=== PATIENT | male | born 1975 | race Caucasian/White ===

== ENCOUNTER 2016-11-26 07:44 | Inpatient (IN) | payer OTHER ==
[~2016-11-26] VITALS: Ht 172.7 cm; Wt 86.2 kg
[2016-11-26 00:18] VITALS: BP 116/71
[2016-11-26] MEDS ORDERED: THIAMINE HCL 200 MG/2 ML VIAL IM ONE (14:00)
[2016-11-26] MEDS ORDERED: CLONIDINE HCL 0.1 MG TABLET PO PRN (14:00)
[2016-11-26] MEDS ORDERED: LORAZEPAM 1 MG TABLET PO PRN ×2 (14:00)
[2016-11-26] MEDS ORDERED: LORAZEPAM 2 MG/1 ML VIAL IM PRN (14:00)
[2016-11-26] MEDS ORDERED: MIRALAX 17 GM POWD.PACK PO PRN (14:00)
[2016-11-26] MEDS ORDERED: LOPERAMIDE HCL 2 MG CAPSULE PO PRN (14:00)
[2016-11-26] MEDS ORDERED: DICYCLOMINE HCL 20 MG TABLET PO PRN (14:00)
[2016-11-26] MEDS ORDERED: MAGNESIUM HYDROXIDE 30 ML LIQUID UDC PO PRN (14:00)
[2016-11-26] MEDS ORDERED: ONDANSETRON 4 MG/2 ML VIAL IM PRN (14:00)
[2016-11-26] MEDS ORDERED: MAG HYDROX/AL HYDROX/SIMETH 30 ML LIQUID UDC PO PRN (14:00)
[2016-11-26] MEDS: LORAZEPAM 1 MG TABLET PO SCH ×3 (15:02→21:43)
[2016-11-26] MEDS: ONDANSETRON ODT 4 MG TAB.RAPDIS SL PRN (15:02)
[2016-11-26 15:17] LABS: BASOPHILS % (AUTO) 0.4 % (0.0-2.0); EOSINOPHILS # (AUTO) 0.1 K/uL (0.0-0.7); EOSINOPHILS % (AUTO) 0.8 % (0.0-7.0); HEMATOCRIT 42.4 % (36.7-47.1); HEMOGLOBIN 14.9 g/dL (12.5-16.3); LYMPHOCYTES % (AUTO) 48.1 % (20.5-51.5); MEAN CORPUSCULAR HEMOGLOBIN 32.5 uug (23.8-33.4); MEAN CORPUSCULAR HGB CONC 35 g/dL (32.5-36.3); MEAN CORPUSCULAR VOLUME 92.4 fL (73.0-96.2); MONOCYTES # (AUTO) 0.5 K/uL (2.0-10.0); MONOCYTES % (AUTO) 7.6 % (0.0-11.0); NEUTROPHILS # (AUTO) 2.7 K/uL (1.8-8.9); NEUTROPHILS % (AUTO) 43.1 % (38.5-71.5); PLATELET COUNT (AUTO) 199 K/uL (152-348); RED BLOOD CELL COUNT(AUTO) 4.59 MIL/uL (4.06-5.63); RED CELL DISTRIBUTION WIDTH 11.6 % (12.1-16.2); WHITE BLOOD COUNT (AUTO) 6.3 K/uL (3.6-10.2)
[2016-11-26 15:20] LABS: ETHANOL < 3 MG/DL (0-0)
[2016-11-26 15:23] LABS: *AMPHETAMINE, URINE NEGATIVE (NEGATIVE); *BARBITURATE, URINE NEGATIVE (NEGATIVE); *CANNABINOID, URINE POSITIVE (NEGATIVE); *COCCAINE, URINE NEGATIVE (NEGATIVE); *OPIATE, URINE POSITIVE (NEGATIVE); *PHENCYCLIDINE SCREEN,URINE NEGATIVE (NEGATIVE)
--- NOTE | 2016-11-26 15:30 | NUR ---
ADMISSION Admitted a 41 year old male from [facility]. vital signs taken at intake during pre admission at 1402 Noted Patient alert and oriented x4, vital signs:BP: 108/74 P: 70, T: 97.8, R: 16, O2 SAT: 97% room air. Patient arrived on serenity unit at 1430 Patient reports no known allergies. Patient pupils are equal and reactive to light, 3mm. Abdomen is soft and non distended, bowel sounds heard in all quadrants. Respirations are even and unlabored, no SOB, lungs clear upon auscultation. body assessment completed, noted with multiple tattoos on back of head, chest, back, and bilateral arms. Patient skin is intact, no breakdown, bruising or discoloration noted. patients body search completed by male intake no contraband found. Patient is 5 feet 8 inches and weighs 190 lbs. Patient reports substance use history of: 1. etoh- began drinking alcohol at the age of 17, reports for the last 3 years has been consuming 1-2 pints of vodka daily, last drink 11/25/2016 reports had one beer. 2. marijuana- reports began smoking marijuana at the age of 17, reports for the last 3 months has been smoking "1 bowl" of marijuana daily, last smoked marijuana on 11/25/2016 "1 bowl". 3. Niantic- was prescribed Niantic for pain 3 months ago and reports he takes it as prescribed for pain TID 10-325mg 5x/wk. last used 11/25/2016. 4. soma- was prescribed for muscular pain, reports takes unknown amount BID 5x/wk by mouth, last used 11/26/2016. Patient reports his primary care physician is Dr. Aden Box in [facility], does not recall the number. Patient reports his longest period of sobriety has been "a couple of months, i don't remember when" per patient he attempts to stop drinking and is successful for a couple of months then begins drinking alcohol again. Patient denies any pre existing medical/psychiatric conditions. Patient denies any Seizure history. Patient was seen and examined by Dr. Mcghee at intake office, admitting orders were input. Psychiatrist notified of new admission. During nursing assessment patient noted with one episode of vomiting, presenting: intermittent nausea, moderate tremors, barely sweating, moderate anxiety with ciwa score of: 14, administered Zofran at 1502 for N/V, will reassess medication. Patient was placed on a 5 day Ativan taper, first dose of taper was administered at 1502 as ordered. Safety measures in place. call light kept with in reach, will continue to monitor closely.
[2016-11-26 15:32] LABS: ALANINE AMINOTRANSFERASE 28 U/L (16-63); ALBUMIN 4.3 g/dL (3.4-5.0); ALKALINE PHOSPHATASE 49 U/L (50-136); AMYLASE 37 U/L (25-115); ASPARTATE AMINOTRANSFERASE 16 U/L (15-37); BILIRUBIN,TOTAL 0.3 mg/dL (0.2-1.0); CALCIUM 9.3 mg/dL (8.5-10.1); CARBON DIOXIDE 35 mmol/L (21-32); CHLORIDE 101 mmol/L (98-107); GFR 83 mL/min (>60); GLUCOSE 99 mg/dL (74-106); LIPASE 106 U/L (73-393); MAGNESIUM 2.2 mg/dL (1.8-2.4); POTASSIUM 4.2 mmol/L (3.5-5.1); SODIUM SERUM 141 mmol/L (136-145); TOTAL PROTEIN, SERUM 7.2 g/dL (6.4-8.2); UREA NITROGEN, BLOOD 12 mg/dL (7-18)
--- NOTE | 2016-11-26 16:02 | NUR ---
ZOFRAN REASSESSMENT Patient reports medication with relief, no N/V noted, will continue to monitor closely. patient encouraged increase in PO fluid intake as tolerated.
[2016-11-26 16:27] LABS: HIV-1 p24 ANTIGEN NON REACTIVE (NONREACTIVE); HIV-1/2 ANTIBODY NON REACTIVE (NONREACTIVE)
[2016-11-26 18:00] VITALS: BP 132/68
--- NOTE | 2016-11-26 18:54 | NUR ---
END OF SHIFT Patient alert and oriented x4, vital signs stable during shift. patient compliant with therapeutic plan of care. patient was started on 5 day Ativan taper as ordered, patients taper was started today as ordered. 1700 assessment patient presented with: moderate tremors, moderate anxiety, barely sweating and very mild head ache with ciwa score of: 10. Encouraged adequate PO fluid intake as tolerated. Patients safety measures in place. call light kept with in reach. patient endorsed to mold shifter nurse, all pertinent information discussed.
--- NOTE | 2016-11-26 19:18 | NUR ---
Start of shift note Received report from day shift nurse. Pt is a 47 yo male, A+Ox4, presenting to [facility] for ETOH/Opiate/Marijuana dependence. Pt has NKA, is Full Code Status, and on Regular diet. Pt is on Fall precautions. Pt has HX of Anxiety. Pt is on 5 day Ativan Taper, tolerated well. No s/s of distress noted at this time. Respirations even unlabored. Will continue to monitor. Addendum: 11/26/16 at 1952 by DALLIN BLEVINS LVN Correction, Pt is a 41 yo male.
[2016-11-26 20:29] VITALS: BP 129/67
[2016-11-26] MEDS: diphenhydrAMINE 50 MG CAPSULE PO PRN (21:47)
--- NOTE | 2016-11-26 21:47 | NUR ---
PRN Benadryl PT c/o inability to sleep and requested for PRN Benadryl. Medication given and tolerated well. Will Reassess within 1 HR. Will continue to monitor.
--- NOTE | 2016-11-26 22:40 | NUR ---
PRN Benadryl Reassessment Medication effective. Pt is resting well in bed. No s/s of ASE/distress noted at this time. Respirations even and unlabored. Will continue to monitor.
[2016-11-27 00:19] VITALS: BP 116/71
[2016-11-27 04:19] VITALS: BP 137/75
[2016-11-27] MEDS: ONDANSETRON ODT 4 MG TAB.RAPDIS SL PRN (05:52)
--- NOTE | 2016-11-27 05:53 | NUR ---
PRN Zofran Pt noted with Emesis x1. PRN Zofran given and tolerated well. Will reassess within 1 HR. Will continue to monitor.
[2016-11-27 06:02] LABS: HCV AB <0.1 s/co ratio (0.0-0.9); HEPATITIS B CORE AB, IgM Negative (Negative); HEPATITIS B SURFACE AG Negative (Negative)
--- NOTE | 2016-11-27 06:30 | NUR ---
PRN Zofran Reassessment Medication effective. Pt expresses reduction in nausea. No s/s of ASE/distress noted at this time. Respirations even and unlabored. Will continue to monitor.
--- NOTE | 2016-11-27 07:10 | NUR ---
Start of Shift Pt is a 41 y/o male here for Etoh r/t Vodka 1-2 pinds per day and beer, Opiates r/t [place] 10/325mg PO tid, Soma with unknown dose bid and Marijuana "1 bowl" daily; 5 day Ativan taper ordered. Pt is a full code, regular diet, NKA, fall precautions ordered. HHx: anxiety and smoker. PRN Benadryl given last night and Zofran PO this morning at 0600. V/S stable. Skin is intact. Last CIWA 2. Pt is awake in bathroom and c/o N/V/D, will f/u with PRN meds for intervention. Will cont. to monitor the pt.
--- NOTE | 2016-11-27 07:26 | NUR ---
End of shift note Pt is a 41 yo male, A+Ox4, presenting to [facility] for ETOH/Opiate/Marijuana dependence. Pt has NKA, is Full Code Status, and on Regular diet. Pt is on Fall precautions. Pt has HX of Anxiety. Pt is on 5 day Ativan Taper, tolerated well. Pt was given PRN Benadryl @7819 and PRN Zofran @0512. Pt slept for a total of 7 HRS. Last CIWA: 2 @0400. No s/s of distress noted at this time. Respirations even unlabored. Will endorse to day shift nurse.
[2016-11-27 08:00] VITALS: BP 98/64
--- NOTE | 2016-11-27 08:10 | NUR ---
PRN Medication Administration Pt is in room with N/V x2 and Diarrhea x 1 bout noted; PRN Zofran 4mg given IM, and Imodium 4mg PO given as ordered and applied cool cloth.Will reassess in 1H.
[2016-11-27] MEDS: LOPERAMIDE HCL 2 MG CAPSULE PO PRN (08:20)
[2016-11-27] MEDS ORDERED: TUBERCULIN,PURIF.PROT.DERIV. 5 TU/0.1 ML TEST ID ONE (09:00)
[2016-11-27] MEDS: MULTIVITAMINS,THERAPEUTIC TABLET PO SCH (09:15)
[2016-11-27] MEDS: FOLIC ACID 1 MG TABLET PO SCH (09:15)
[2016-11-27] MEDS: LORAZEPAM 1 MG TABLET PO SCH ×3 (09:15→21:04)
[2016-11-27] MEDS: THIAMINE HCL 100 MG TABLET PO SCH (09:15)
--- NOTE | 2016-11-27 09:15 | NUR ---
Reassessment Pt is in room resting and states that he wants to take a nap and denies recurrent N/V/D; PRN Imodium and Zofran is effective, Scheduled Ativan given as ordered. Will cont. to monitor the pt.
[2016-11-27 12:00] VITALS: BP 93/62
[2016-11-27] MEDS ORDERED: LORAZEPAM 1 MG TABLET PO ONE (13:00)
--- NOTE | 2016-11-27 13:55 | NUR ---
Medication Fwz-[id number]-[id number] ONCE Pt is in room asleep, no s/sx of w/d with N/V/D present; HELD the Ativan 2mg PO ONCE dose scheduled at 1300pm and notified Dr. Mcghee during my shift of pt's status. Will cont. cont. to monitor the pt.
[2016-11-27 16:00] VITALS: BP 120/69
[2016-11-27] MEDS: IBUPROFEN 400 MG TABLET PO PRN (16:06)
--- NOTE | 2016-11-27 16:10 | NUR ---
PRN Medication Administration Pt is in room and c/o SANTANA; PRN Motrin 400mg given as ordered. Will reassess in 1H.
--- NOTE | 2016-11-27 17:10 | NUR ---
Reassessment Pt is headed down to dinner and denies SANTANA; Motrin is effective. Will cont. to monitor the pt.
--- NOTE | 2016-11-27 19:15 | NUR ---
End of Shift Report to night nurse: Pt is a 41 y/o male here for Etoh r/t Vodka 1-2 pints per day and beer, Opiates r/t [place] 10/325mg PO tid, Soma with unknown dose bid and Marijuana "1 bowl" daily; 5 day Ativan taper ordered. Pt is a full code, regular diet, NKA, fall precautions ordered. HHx: anxiety and smoker. V/S stable. Skin is intact. Pt missed 1300H dose of Ativan ONCE since he was asleep. PRN Zofran 4mg IM and Imodium 4mg PO given for first bouts this morning at 0810 and was effective. PRN Motrin 400mg given for SANTANA and was effective. TB test done on the left FA. Last CIWA 6. Will cont. to monitor the pt.
--- NOTE | 2016-11-27 19:16 | NUR ---
Start of shift note Received report from day shift nurse. Pt is a 41 yo male, A+Ox4, presenting to [facility] for ETOH/Opiate/Marijuana dependence. Pt has NKA, is Full Code Status, and on Regular diet. Pt is on Fall precautions. Pt has HX of Anxiety. Pt is on 5 day Ativan Taper, tolerated well. No s/s of distress noted at this time. Respirations even unlabored. Will continue to monitor.
[2016-11-27 20:33] VITALS: BP 137/79
[2016-11-28 00:18] VITALS: BP 97/58
[2016-11-28 04:24] VITALS: BP 111/60
--- NOTE | 2016-11-28 07:06 | NUR ---
End of shift note Pt is a 41 yo male, A+Ox4, presenting to [facility] for ETOH/Opiate/Marijuana dependence. Pt has NKA, is Full Code Status, and on Regular diet. Pt is on Fall precautions. Pt has HX of Anxiety. Pt is on 5 day Ativan Taper, tolerated well. Pt slept for a total of 9 HRS. Last CIWA: 3 @0400. No s/s of distress noted at this time. Respirations even unlabored. Will endorse to day shift nurse.
--- NOTE | 2016-11-28 07:10 | NUR ---
Start of Shift Report from night nurse: Pt is a 41 y/o male here for Etoh r/t Vodka 1-2 pints per day and beer, Opiates r/t [place] 10/325mg PO tid, Soma with unknown dose bid and Marijuana "1 bowl" daily; 5 day Ativan taper ordered. Pt is a full code, regular diet, NKA, fall precautions ordered. HHx: Anxiety and smoker. V/S stable. Skin is intact. No PRN medications given last night. No new orders or recommendations endorsed to me. Last CIWA 3. Pt is awake in room and watching TV. Will cont. to monitor the pt.
[2016-11-28 07:50] LABS: ALBUMIN 3.7 g/dL (3.4-5.0); BILIRUBIN,DIRECT 0.1 mg/dL (0.0-0.2); BILIRUBIN,TOTAL 0.3 mg/dL (0.2-1.0); CALCIUM 8.6 mg/dL (8.5-10.1); MAGNESIUM 2.1 mg/dL (1.8-2.4); PHOSPHOROUS 2.8 mg/dL (2.5-4.9); POTASSIUM 4.4 mmol/L (3.5-5.1); TOTAL PROTEIN, SERUM 6.8 g/dL (6.4-8.2)
[2016-11-28 08:00] VITALS: BP 118/71
[2016-11-28] MEDS: IBUPROFEN 400 MG TABLET PO PRN ×2 (09:00→16:31)
[2016-11-28] MEDS: MULTIVITAMINS,THERAPEUTIC TABLET PO SCH (09:00)
--- NOTE | 2016-11-28 09:00 | NUR ---
PRN Medication Administration Pt is in room eating breakfast and c/o having a SANTANA with 5/10 discomfort; PRN Motrin 400mg PO given as ordered. Will reassess in 1H.
[2016-11-28] MEDS: THIAMINE HCL 100 MG TABLET PO SCH (09:01)
[2016-11-28] MEDS: LORAZEPAM 1 MG TABLET PO SCH ×3 (09:01→16:31)
[2016-11-28] MEDS: FOLIC ACID 1 MG TABLET PO SCH (09:01)
--- NOTE | 2016-11-28 10:00 | NUR ---
Reassessment Pt is in room and getting ready to go down to smoke, pt states that SANTANA pain decreased to 3/10 pain with Motrin somewhat effective and pt refused PRN Tylenol available. Will cont. to monitor the pt.
[2016-11-28 12:00] VITALS: BP 148/108
[2016-11-28] MEDS: ACETAMINOPHEN 325 MG TABLET PO PRN (12:20)
--- NOTE | 2016-11-28 12:22 | NUR ---
PRN Medication Administration Pt c/o recurrent SANTANA; PRN Tylenol 650mg given as ordered. Will reassess in 1H.
[2016-11-28] MEDS ORDERED: LORAZEPAM 1 MG TABLET PO ONE (13:00)
--- NOTE | 2016-11-28 13:00 | NUR ---
New Order-Ativan ONCE Pt is in room crying and states that he is sad and severely anxious with HR 108 r/t sadness from his friend's ; I notified Dr. Mcghee and new order for Ativan 1mg PO ONCE for Anxiety given as ordered. Will reassess in 30 mins-1H.
--- NOTE | 2016-11-28 13:30 | NUR ---
Reassessment Pt states that SANTANA has decreased to 3/10 pain; Tylenol is somewhat effective. Pt refused PRN Motrin at this time. Will cont. to monitor the pt.
--- NOTE | 2016-11-28 14:00 | NUR ---
Reassessment Pt is resting in bed and watching TV and states that he feels better, no crying noted and decreased anxiety present; Ativan is effective. Will cont. to monitor the pt.
[2016-11-28 16:00] VITALS: BP 130/80
[2016-11-28] MEDS: GABAPENTIN 300 MG CAPSULE PO SCH ×2 (16:32→20:46)
[2016-11-28] MEDS: CLONIDINE HCL 0.1 MG TABLET PO SCH ×2 (16:32→21:03)
--- NOTE | 2016-11-28 16:40 | NUR ---
PRN Medication Administration Pt c/o SANTANA pain 01/12; PRN Motrin 400mg given as ordered. Will reassess in 1H.
--- NOTE | 2016-11-28 17:15 | NUR ---
Reassessment Pt is headed to dinner and states that SANTANA has decreased to 2/10 pain; PRN Motrin is effective. Will cont. to monitor the pt.
--- NOTE | 2016-11-28 19:36 | NUR ---
START OF SHIFT NOTE Patient endorsed by day shift nurse in stable condition. SBAR Report received. Patient is a 41 years old male admitted to [facility] on 11/26/16 for ETOH and Opioid Withdrawal, placed on 5 day Ativan Taper. Patient remains compliant with treatment plan, medications and diet regime. NKA, Regular Diet, Full Code, Fall and Seizures Precautions. No History of Seizures. Past Medical History: Anxiety Disorder. Substance Use: ETOH:" 1-2 pints of Vodka Daily during 3 years. Last use 1 beer on 11/25/2016". NORCO: " 10-325 mg PO 5x/week during 3 months. Last use 20-325 mg on 11/26/16".SOMAS: "Unknown amount BID 5x/week during 3 months. Last use "unknown amount" on 11/26/16". Recent Hospitalizations/Treatment History: [facility]: [facility]; x4 Rehabilitation facilities. Patient is in the bed , in his room. COWS 7: Patient reports increased anxiety, nervousness, sweating, mild diffuse discomfort, stomach cramps, tremors that can felt. Patient denies N/V, and diarrhea now. Pain level 5/10 "bones and muscles aches". Patient denies SI/HI. Upon assessment patient is alert and oriented x4. Speech is clear and soft. Face is symmetrical. PERRLA. Pupil's larger than normal size bilaterally. Ears WNL. Mouth's WNL. Lips are pink. Breathing is even and unlabored. Lungs are clear bilaterally. BS's active in all x4 quadrants, abdomen is soft. Skin is intact, warm and moist by touch. Patient attended activities. Patient remains compliant with treatment plan. Safety measures by hospital policy: Call light within reach; Bed in lowest position and locked; padded rails up x2. All needs met. Will continue to monitor closely.
--- NOTE | 2016-11-28 19:36 | NUR ---
End of Shift Report to night nurse: Pt is a 41 y/o male here for Etoh r/t Vodka 1-2 pints per day and beer, Opiates r/t [place] 10/325mg PO tid, Soma with unknown dose bid and Marijuana "1 bowl" daily; 5 day Ativan taper ordered. Pt is a full code, regular diet, NKA, fall precautions ordered. HHx: anxiety and smoker. V/S stable. Skin is intact. PRN Motrin given twice with last dose 1635p and Tylenol once 1225p. New Order for Ativan 1mg ONCE for anxiety given at 1300H. Endorsed to night nurse to give pt something for sleep. Last CIWA 6.
[2016-11-28 20:00] VITALS: BP 118/67
[2016-11-28] MEDS ORDERED: LORAZEPAM 1 MG TABLET PO SCH (21:00)
[2016-11-28] MEDS: diphenhydrAMINE 50 MG CAPSULE PO PRN (21:33)
--- NOTE | 2016-11-28 21:33 | NUR ---
PRN BENADRYL PO ADMINISTRATION Patient c/o insomnia. Patient was assessed. VS WNL. PRN Benadryl PO was discussed with patient. Patient was educated for actions, adverse reactions, and side effects of Benadryl. Patient return his knowledge back by verbalizing understanding. PRN Benadryl PO administrated as ordered. Patient tolerated well. Safety measures by hospital policy: Call light within reach; Bed in lowest position and locked; padded rails up x2. All needs met. Will continue to monitor closely.
--- NOTE | 2016-11-28 22:33 | NUR ---
RE-ASSESSMENT Patient sleeping on his left side. RR 15. Breathing is unlabored and even. PRN Benadryl PO was effective. Safety measures in the place by hospital policy: Call light within reach; Bed in lowest position and locked; padded rails up x2. All needs met. Will continue to monitor closely.
--- NOTE | 2016-11-29 | NUR ---
VS REFUSED Patient refused VS at 00:00. patient is sleeping.CIWA differed.Safety measures by hospital policy: Call light within reach; Bed in lowest position and locked; padded rails up x2. All needs met. Will continue to monitor closely.
[2016-11-29 04:00] VITALS: BP 115/66
--- NOTE | 2016-11-29 07:17 | NUR ---
END OF SHIFT NOTE Patient is a 41 years old male admitted to [facility] on 11/26/16 for ETOH and Opioid Withdrawal, placed on 5 day Ativan Taper. Patient remains compliant with treatment plan, medications and diet regime. NKA, Regular Diet, Full Code, Fall and Seizures Precautions. No History of Seizures. Past Medical History: Anxiety Disorder. Substance Use: ETOH:" 1-2 pints of Vodka Daily during 3 years. Last use 1 beer on 11/25/2016". NORCO: " 10-325 mg PO 5x/week during 3 months. Last use 20-325 mg on 11/26/16".SOMAS: "Unknown amount BID 5x/week during 3 months. Last use "unknown amount" on 11/26/16". Recent Hospitalizations/Treatment History: [facility]: [facility]; x4 Rehabilitation facilities. COWS decreased from 7 to 3: Patient presented with anxiety, nervousness, sweating, mild diffuse discomfort, stomach cramps, tremors that can felt. Patient denies N/V, and diarrhea now. Patient denies SI/HI. Skin is intact, warm and moist by touch. Patient attended activities. Patient remains compliant with treatment plan. PRN Benadryl PO administrated for insomnia was effective. Patient slept 7 hours 45 minutes; Intake1,329 ml; Voided x2. Safety measures by hospital policy: Call light within reach; Bed in lowest position and locked; padded rails up x2. All needs met. Patient endorsed to day shift nurse in stable condition. SBAR Report given.
--- NOTE | 2016-11-29 07:20 | NUR ---
Start of shift note Pt was admitted for ETOH dependence and opiate use. Pt has a PMH of anxiety. Pt is on a 5 day ativan taper to manage the s/s of his withdrawal. Pt is a full code, on a regular diet and has NKA. Pt is currently ambulating around his room. Pt has no complaints at this time. Will continue to monitor pt. All needs addressed at this time.
[2016-11-29 08:00] VITALS: BP 110/70
[2016-11-29] MEDS: THIAMINE HCL 100 MG TABLET PO SCH (08:45)
[2016-11-29] MEDS: ACETAMINOPHEN 325 MG TABLET PO PRN ×2 (08:45→20:49)
[2016-11-29] MEDS: MULTIVITAMINS,THERAPEUTIC TABLET PO SCH (08:45)
[2016-11-29] MEDS: FOLIC ACID 1 MG TABLET PO SCH (08:45)
[2016-11-29] MEDS: GABAPENTIN 300 MG CAPSULE PO SCH ×2 (08:45→15:00)
[2016-11-29] MEDS: CLONIDINE HCL 0.1 MG TABLET PO SCH ×3 (08:45→20:50)
--- NOTE | 2016-11-29 08:45 | NUR ---
PRN administration Pt c/o headache 02/11. Administered tylenol PRN with AM meds. Will continue to monitor pt. VS are WNL.
[2016-11-29] MEDS ORDERED: LORAZEPAM 1 MG TABLET PO SCH (09:00)
--- NOTE | 2016-11-29 09:45 | NUR ---
Reassessment Unable to assess pt at this time. Pt is with other staff members. Will assess pt upon return to room.
[2016-11-29] MEDS: ONDANSETRON ODT 4 MG TAB.RAPDIS SL PRN (10:16)
[2016-11-29] MEDS: IBUPROFEN 400 MG TABLET PO PRN (10:16)
[2016-11-29] MEDS: HYDROXYZINE PAMOATE 25 MG CAPSULE PO PRN (10:16)
--- NOTE | 2016-11-29 10:17 | NUR ---
PRN administration Pt c/o nausea, anxiety and states that he still has a headache of 8/10. Administered PRN motrin, vistaril and zofran. Dr Mcghee aware. Will continue to monitor pt.
--- NOTE | 2016-11-29 10:47 | NUR ---
Reassessment Pt states that his nausea has improved and that he no longer feels nauseated.
--- NOTE | 2016-11-29 11:17 | NUR ---
PRN reassessment Pt states that his headache is down to a comfortable level of 3/10 and that his anxiety has improved. Will continue to monitor pt.
[2016-11-29 12:00] VITALS: BP 97/60
[2016-11-29] MEDS: LORAZEPAM 1 MG TABLET PO SCH ×3 (13:44→20:50)
--- NOTE | 2016-11-29 15:36 | NUR ---
Medications held Pt is sleeping soundly. Medications held. Will continue to monitor pt.
[2016-11-29 16:00] VITALS: BP 126/65
--- NOTE | 2016-11-29 18:39 | NUR ---
End of shift note Pt was admitted for ETOH dependence and opiate use. Pt is on an ativan taper that was extended during the shift d/t s/s of withdrawal. Pt is tolerating the taper well. Pt has a recent CIWA of 2. Pt had medications to manage his headache and anxiety with effectiveness. Pt has no complaints at this time. Pt is compliant with care. All needs addressed at this time. Pt is cooperative with the plan of care. Will endorse SBAR to oncoming shift.
--- NOTE | 2016-11-29 18:39 | NUR ---
START OF SHIFT NOTE Patient endorsed by outgoing day shift nurse. SBAR report received. Patient is a 41 year old male admitted to [facility] for ETOH and Opioid withdrawal under medical supervision, placed on 5 day Ativan Taper since 11/26/16. 11/28/16 Ativan taper was modified to avoid risk of withdrawal-induced seizures or delirium on more 3 day by Doctor order's. Patient remains compliant with therapeutic plan, medications and diet regime. NKA, Full CODE, Regular Diet, Fall and Seizures Precautions. No History of Seizures. Past Medical History: Chronic tobacco use, Mood disorder, Anxiety disorder, Alcohol use disorder. Substance Use: ETOH: " 1-2 pint of Vodka since 2013. Last used 1 beer one 11/25/16". Marijuana: "1 Bowl" daily during last 8 months. Last dosage of "1 Bowl" on 11/25/16". NORCO: 10-325 mg TID 5x/wk during last 3 months. Last dosage's 10-325mg on 11/26/16". SOMAS: "Unknown amount" BID 5x/week last 3 months. Last "Unknown dosage" was on 11/26/16". Upon endorsement CIWA 5. Patient has mild anxiety, mild diffuse discomfort, tremors, that can felt, headache "02/11".Patient denies N/V, and diarrhea. NO GI symptoms. Patient denies SI/HI. VS WNL. Breathing is unlabored and even. Patient denies SOB, and chest pain. Lungs Sounds are clear. BS are active. Abdomen is soft. Patient attended activities. All needs met. Safety measures in the place by hospital policy: Call light within reach, Bed in the lowest position and locked, padded rails up x2. Will continue to monitor closely.
[2016-11-29 20:00] VITALS: BP 123/72
--- NOTE | 2016-11-29 20:49 | NUR ---
PRN TYLENOL PO ADMINISTRATION Patient c/o headache "02/11". Patient was assessed. VS WNL. PRN Tylenol PO discussed with patient. Patient 's educated for actions, adverse reactions, and side effects of Tylenol . Patient return his knowledge back by verbalizing understanding. PRN Tylenol PO 650 mg administrated with full glass of water. Patient tolerated well. Safety measures by hospital policy: Call light within reach; Bed in lowest position and locked; padded rails up x2. All needs met. Will continue to monitor closely.
--- NOTE | 2016-11-29 20:55 | NUR ---
PRN MAALOX SUSPENSION PO ADMINISTRATION Patient c/o heartburn. Patient was assessed. VS WNL. PRN Maalox Suspension PO was discussed with patient. Patient was educated for actions, adverse reactions, and side effects of Maalox Suspension. Patient return his knowledge back by verbalizing understanding. PRN Maalox Suspension PO 30 ml administrated as ordered. Patient tolerated well. Safety measures by hospital policy: Call light within reach; Bed in lowest position and locked; padded rails up x2. All needs met. Will continue to monitor closely.
[2016-11-29] MEDS ORDERED: GABAPENTIN 300 MG CAPSULE PO SCH (21:00)
--- NOTE | 2016-11-29 21:33 | NUR ---
PRN BENADRYL PO ADMINISTRATION Patient c/o insomnia. Patient was assessed. VS WNL. PRN Benadryl PO was discussed with patient. Patient was educated for actions, adverse reactions, and side effects of Benadryl. Patient return his knowledge back by verbalizing understanding. PRN Benadryl PO administrated as ordered. Patient tolerated well. Safety measures by hospital policy: Call light within reach; Bed in lowest position and locked; padded rails up x2. All needs met. Will continue to monitor closely. Addendum: 11/29/16 at 2213 by DIVYA SCHMITT RN 22:08 Addendum: 11/29/16 at 2214 by DIVYA SCHMITT RN 22:08 PRN BENADRYL PO ADMINISTRATION
--- NOTE | 2016-11-29 21:49 | NUR ---
RE-ASSESSMENT Patient reassessed. Patient said, that: "Tylenol help with my headache". Pain level decreased from 7/10 to 3/10. All needs met. Safety measures in the place by hospital policy: Call light within reach, Bed in the lowest position and locked, padded rails up x2. Will continue to monitor closely.
--- NOTE | 2016-11-29 21:55 | NUR ---
RE-ASSESSMENT Patient reassessed. Patient said, that: " Maalox Suspension help me.I don't have heartburn now". All needs met. Safety measures in the place by hospital policy: Call light within reach, Bed in the lowest position and locked, padded rails up x2. Will continue to monitor closely.
[2016-11-29] MEDS: diphenhydrAMINE 50 MG CAPSULE PO PRN (22:08)
--- NOTE | 2016-11-29 22:33 | NUR ---
RE - ASSESSMENT Patient sleeping on his bed. Breathing unlabored and even. RR 14. PRN Benadryl PO All needs met. Safety measures in the place by hospital policy: Call light within reach, Bed in the lowest position and locked, padded rails up x2. Will continue to monitor closely. Addendum: 12/01/16 at 0046 by DIVYA SCHMITT RN PRN Benadryl PO was effective.
[2016-11-30] VITALS: BP 113/68
[2016-11-30 04:00] VITALS: BP 103/66
--- NOTE | 2016-11-30 07:20 | NUR ---
END OF SHIFT NOTE Patient is a 41 year old male admitted to [facility] for ETOH and Opioid withdrawal under medical supervision, placed on 5 day Ativan Taper since 11/26/16. 11/28/16 Ativan taper was modified to avoid risk of withdrawal-induced seizures or delirium on more 3 day by Doctor order's. Patient remains compliant with therapeutic plan, medications and diet regime. NKA, Full CODE, Regular Diet, Fall and Seizures Precautions. No History of Seizures. Past Medical History: Chronic tobacco use, Mood disorder, Anxiety disorder, Alcohol use disorder. Substance Use: ETOH: " 1-2 pint of Vodka since 2013. Last used 1 beer one 11/25/16". Marijuana: "1 Bowl" daily during last 8 months. Last dosage of "1 Bowl" on 11/25/16". NORCO: 10-325 mg TID 5x/wk during last 3 months. Last dosage's 10-325mg on 11/26/16". SOMAS: "Unknown amount" BID 5x/week last 3 months. Last "Unknown dosage" was on 11/26/16". CIWA decreased from 5 to 2: Patient presented with mild anxiety, mild diffuse discomfort, tremors, that can felt, headache. Patient denies N/V, and diarrhea. No GI symptoms. Patient denies SI/HI. VS WNL. Patient attended activities. PRN Benadryl PO was effective. Patient slept 7 hours, Intake 800 ml, Voided x2. All needs met. Safety measures in the place by hospital policy: Call light within reach, Bed in the lowest position and locked, padded rails up x2. Patient endorsed to day shift nurse. SBAR report given.
--- NOTE | 2016-11-30 07:30 | NUR ---
Start Of Shift Received Pt is a 41 year old male admitted to for ETOH and Opioid withdrawal under medical supervision, placed on 5 day Ativan taper. Patient remains compliant with therapeutic plan, medications and diet regime. NKA, Full CODE, Regular Diet, pt continues on Fall and Seizures Precautions. Pt was not able to sleep well last night stating I slept on and off. Pt presented with anxiety mild tremors and sweats this morning. Pt received PRN Benadryl last night for insomnia. Medication was effective per film processing shift supervisor RN. Pt slept a total of 7 hours, his last CIWA was a 2 taken at 0400. Encouraged increased fluids to help facilitate detox. Will provide safe and supportive environment. All safety measures in place, bed locked in lowest position, side rails upx2 will continue to monitor and provide care.
[2016-11-30 08:00] VITALS: BP 100/70
[2016-11-30] MEDS ORDERED: LORAZEPAM 1 MG TABLET PO SCH ×2 (09:00→21:00)
[2016-11-30] MEDS: MULTIVITAMINS,THERAPEUTIC TABLET PO SCH (09:11)
[2016-11-30] MEDS: LORAZEPAM 1 MG TABLET PO SCH ×2 (09:11→15:03)
[2016-11-30] MEDS: GABAPENTIN 300 MG CAPSULE PO SCH ×3 (09:11→20:42)
[2016-11-30] MEDS: CLONIDINE HCL 0.1 MG TABLET PO SCH ×3 (09:12→20:43)
[2016-11-30] MEDS: THIAMINE HCL 100 MG TABLET PO SCH (09:12)
[2016-11-30] MEDS: FOLIC ACID 1 MG TABLET PO SCH (09:12)
[2016-11-30 12:00] VITALS: BP 114/78
--- NOTE | 2016-11-30 12:19 | NUR ---
Therapist encouraged client to attend group therapy session.
[2016-11-30] MEDS ORDERED: PANTOPRAZOLE SODIUM 40 MG TABLET.DR PO ONE (12:30)
[2016-11-30 16:00] VITALS: BP 118/73
[2016-11-30] MEDS: IBUPROFEN 400 MG TABLET PO PRN (18:27)
[2016-11-30] MEDS: HYDROXYZINE PAMOATE 25 MG CAPSULE PO PRN (18:27)
--- NOTE | 2016-11-30 18:29 | NUR ---
PRN MEDICATION Pt c/o Anxiety presented with agitation and restlessness pt also complained of generalized pain rating it 5/10 requested something for relief, non-pharmacological techniques interventions provided x3 and were not effective. PRN Vistaril 25mg, and Motrin 400mg administered PO, educated pt about s/e of medication and when to contact nurse. all needs met, all safety measures in place, will continue to monitor.
--- NOTE | 2016-11-30 18:58 | NUR ---
End Of Shift Pt is a 41 year old male admitted for Opiate and ETOH dependency. Full code regular diet continues to be on fall and seizure precautions, NKA. Patient alert and oriented x4, vital signs were stable during shift. Patient compliant with therapeutic plan of care. Patient continues on 5 day Ativan taper as ordered, well tolerated, no ASE noted. Patient encouraged adequate PO fluid intake as tolerated. Upon assessment patient presented with c/o chills, mild anxiety, mild agitation and barely sweating with his last CIWA score of: 3 @1600. Detox medication effective at reducing withdrawal symptoms. Patient encouraged to attend group therapies/sessions to learn new coping skills to recent relapse, noted attending and participating, patient denies SI/HI. Pt ate all of his meals his total fluid intake was 2888ml with 3 void and 3 bowel movement ,PRN Vistaril and Motrin administered during the day medication was effective. Safety measures in place. Call light kept within reach. Patient endorsed to manufacturing shift supervisor nurse, all pertinent information discussed.
--- NOTE | 2016-11-30 18:58 | NUR ---
START OF SHIFT NOTE Patient is a 41 year old male admitted to [facility] for ETOH and Opioid withdrawal under medical supervision, placed on 5 day Ativan Taper since 11/26/16. 11/28/16 Ativan taper was modified to avoid risk of withdrawal-induced seizures or delirium on more 3 day by Doctor order's. Patient remains compliant with therapeutic plan, medications and diet regime. NKA, Full CODE, Regular Diet, Fall and Seizures Precautions. No History of Seizures. Past Medical History: Chronic tobacco use, Mood disorder, Anxiety disorder, Alcohol use disorder. Substance Use: ETOH: " 1-2 pint of Vodka since 2013. Last used 1 beer one 11/25/16". Marijuana: "1 Bowl" daily during last 8 months. Last dosage of "1 Bowl" on 11/25/16". NORCO: 10-325 mg TID 5x/wk during last 3 months. Last dosage's 10-325mg on 11/26/16". SOMAS: "Unknown amount" BID 5x/week last 3 months. Last "Unknown dosage" was on 11/26/16". Upon endorsement CIWA 4. Patient has mild anxiety, mild diffuse discomfort, tremors, that can felt, headache "10/12". Patient denies N/V, and diarrhea. No GI symptoms. Patient denies SI/HI. VS WNL. Breathing is unlabored and even. Patient denies SOB, and chest pain. Lungs Sounds are clear. BS are active. Abdomen is soft. Patient attended activities. All needs met. Safety measures in the place by hospital policy: Call light within reach, Bed in the lowest position and locked, padded rails up x2. Patient endorsed by outgoing day shift nurse. SBAR report received. Will continue to monitor closely.
[2016-11-30 20:00] VITALS: BP 125/75
[2016-11-30] MEDS: diphenhydrAMINE 50 MG CAPSULE PO PRN (20:42)
--- NOTE | 2016-11-30 20:42 | NUR ---
PRN BENADRYL PO AND PRN TYLENOL PO ADMINISTRATION Patient c/o headache and insomnia. Patient 's assessed. Headache pain level "7/10". PRN Benadryl PO and PRN Tylenol PO discussed with patient. Patient 's educated for actions, adverse reactions, and side effects of Benadryl and Tylenol . Patient return his knowledge back by verbalizing understanding. PRN Benadryl PO and PRN Tylenol administrated as ordered with full glass of water. Patient tolerated well. Safety measures by hospital policy: Call light within reach; Bed in lowest position and locked; padded rails up x2. All needs met. Will continue to monitor closely.
[2016-11-30] MEDS: ACETAMINOPHEN 325 MG TABLET PO PRN (20:44)
--- NOTE | 2016-11-30 21:42 | NUR ---
RE - ASSESSMENT Patient sleeping on his bed. Breathing unlabored and even. RR 14. PRN Benadryl PO and PRN Tylenol PO were effective. All needs met. Safety measures in the place by hospital policy: Call light within reach, Bed in the lowest position and locked, padded rails up x2. Will continue to monitor closely.
[2016-12-01] VITALS: BP 116/64
[2016-12-01 04:00] VITALS: BP 106/67
--- NOTE | 2016-12-01 04:00 | NUR ---
CIWA DEFERRED Patient refused to be woken up for 04:00. JAY deferred d/t patient sleeping to assess while patient is awake. Safety measures on place by hospital policy: Call light within reach; Bed in lowest position and locked; side rails up x2. Will continue to monitor.
[2016-12-01] MEDS: PANTOPRAZOLE SODIUM 40 MG TABLET.DR PO SCH (06:30)
--- NOTE | 2016-12-01 06:55 | NUR ---
END OF SHIFT NOTE Patient is a 41 year old male admitted to [facility] for ETOH and Opioid withdrawal under medical supervision, placed on 5 day Ativan Taper since 11/26/16. 11/28/16 Ativan taper was modified to avoid risk of withdrawal-induced seizures or delirium on more 3 day by Doctor order's. Patient remains compliant with therapeutic plan, medications and diet regime. NKA, Full Code, Regular Diet, Fall and Seizures Precautions. No History of Seizures. Past Medical History: Chronic tobacco use, Mood disorder, Anxiety disorder, Alcohol use disorder. Withdrawal symptoms notably improved. CIWA decreased from 6 at 20:00 to 2 at 00:00. Patient presented with anxiety, agitation, sweating, and headache. Patient denies N/V, and diarrhea. No GI symptoms. Patient denies SI/HI. Vital Signs stable. Patient encouraged to drink and provided with PO fluids. Skin is intact, warm and dry by touch. Patient attended activities. PRN Benadryl PO and PRN Tylenol PO administrated to patient were effective. Patient slept 8 hours; Intake 1251 ml; Voided x4. All needs met. Safety measures in the place by hospital policy: Call light within reach, Bed in the lowest position and locked, padded rails up x2. Patient endorsed to day shift nurse in stable condition. SBAR report given.
[2016-12-01 07:59] LABS: BASOPHILS % (AUTO) 0.5 % (0.0-2.0); EOSINOPHILS # (AUTO) 0.1 K/uL (0.0-0.7); EOSINOPHILS % (AUTO) 1.4 % (0.0-7.0); HEMATOCRIT 45.4 % (36.7-47.1); LYMPHOCYTES # (AUTO) 2.3 K/uL (20.0-40.0); LYMPHOCYTES % (AUTO) 25.7 % (20.5-51.5); MEAN CORPUSCULAR HEMOGLOBIN 32.5 uug (23.8-33.4); MEAN CORPUSCULAR HGB CONC 35 g/dL (32.5-36.3); MEAN CORPUSCULAR VOLUME 92.4 fL (73.0-96.2); MONOCYTES # (AUTO) 0.7 K/uL (2.0-10.0); MONOCYTES % (AUTO) 7.9 % (0.0-11.0); NEUTROPHILS % (AUTO) 64.5 % (38.5-71.5); PLATELET COUNT (AUTO) 208 K/uL (152-348); RED BLOOD CELL COUNT(AUTO) 4.92 MIL/uL (4.06-5.63); RED CELL DISTRIBUTION WIDTH 11.8 % (12.1-16.2)
[2016-12-01 08:00] VITALS: BP 139/60
[2016-12-01 08:01] LABS: WHITE BLOOD COUNT (AUTO) 9.1 K/uL (3.6-10.2)
[2016-12-01 08:10] LABS: CALCIUM 9.5 mg/dL (8.5-10.1); MAGNESIUM 1.9 mg/dL (1.8-2.4); PHOSPHOROUS 4.2 mg/dL (2.5-4.9); POTASSIUM 4.7 mmol/L (3.5-5.1)
--- NOTE | 2016-12-01 08:15 | NUR ---
START OF SHIFT: RECEIVED PT A/O X 4. HE PRESENTS WITH GUARDED AFFECT AND ANXIOUS MOOD. HE REPORTS SOME ANXIETY AND A H/A 6/10 ON PAIN SCALE. HE STATES HE SLEPT OK. FALL/SZ PRECAUTIONS NOTED. ATIVAN TAPER IN PROGRESS. CIWA 4. PRN MOTRIN ADMINISTERED FOR H/A. WILL MONITOR EFFECTIVENESS OF PRN.WILL CONTINUE TO PROVIDE SAFE AND SUPPORTIVE ENVIRONMENT.
[2016-12-01] MEDS: CLONIDINE HCL 0.1 MG TABLET PO SCH ×3 (08:32→21:34)
[2016-12-01] MEDS: THIAMINE HCL 100 MG TABLET PO SCH (08:33)
[2016-12-01] MEDS: GABAPENTIN 300 MG CAPSULE PO SCH ×3 (08:33→21:34)
[2016-12-01] MEDS: MULTIVITAMINS,THERAPEUTIC TABLET PO SCH (08:33)
[2016-12-01] MEDS: FOLIC ACID 1 MG TABLET PO SCH (08:33)
[2016-12-01] MEDS: LORAZEPAM 1 MG TABLET PO SCH ×2 (08:33→21:34)
[2016-12-01] MEDS: IBUPROFEN 400 MG TABLET PO PRN (08:35)
--- NOTE | 2016-12-01 09:05 | NUR ---
PT STATES PRN MOTRIN WAS EFFECTIVE AND H/A IS GONE. 0/10 ON SCALE.
[2016-12-01] MEDS: LOPERAMIDE HCL 2 MG CAPSULE PO PRN (10:47)
--- NOTE | 2016-12-01 10:50 | NUR ---
PT REPORTS DIARRHEA. PRN IMODIUM GIVEN ORDERED. WILL MONITOR EFFECTIVENESS.
--- NOTE | 2016-12-01 11:30 | NUR ---
PT STATES THE IMODIUM WAS EFFECTIVE AND HIS DIARRHEA HAS STOPPED.
[2016-12-01 12:00] VITALS: BP 107/60
[2016-12-01 16:00] VITALS: BP 107/72
--- NOTE | 2016-12-01 18:39 | NUR ---
END OF SHIFT: PT CONTINUES ON MODIFIED ATIVAN TAPER. LAST CIWA 2. HE PRESENTS WITH GUARDED AFFECT AND ANXIOUS MOOD. HE C/O H/A 6/10 THIS AM AND PRN MOTRIN GIVEN AND EFFECTIVE. HE ALSO C/O DIARRHEA. PRN IMODIUM GIVEN AND EFFECTIVE. PT SKIPPED THE MORNING GROUP BECAUSE OF H/A AND DIARRHEA BUT DID ATTEND AFTERNOON GROUP. HE HAD LITTLE INTERACTION WITH PEERS TODAY. WILL PASS SHIFT REPORT TO ONCOMING NIGHT NURSE.
--- NOTE | 2016-12-01 19:30 | NUR ---
START OF SHIFT-- Pt is a 41 y/o male ETOH/OPIATE dependency;NKA, full code status,on regular diet.PMH of anxiety. Pt is A/O X 4. Patient denies N/V, and diarrhea. No GI symptoms.Skin is intact. Patient denies SI/HI. VS WNL. Breathing is unlabored and even. All needs met. Safety measures in the place by hospital policy: Call light within reach, Bed in the lowest position and locked, padded rails up x2. Patient is in stable condition,will be monitored for safety.
[2016-12-01 20:00] VITALS: BP 123/72
[2016-12-01] MEDS ORDERED: SIMETHICONE 80 MG TAB.CHEW PO PRN (20:45)
[2016-12-01] MEDS ORDERED: FAMOTIDINE 20 MG TABLET PO ONE (20:45)
[2016-12-01] MEDS ORDERED: BISMUTH SUBSALICYLATE 262 MG/15 ML UDC PO PRN (20:45)
[2016-12-01] MEDS ORDERED: FAMOTIDINE 20 MG TABLET ONE (21:26)
[2016-12-01] MEDS ORDERED: GABAPENTIN 300 MG CAPSULE ONE (21:32)
--- NOTE | 2016-12-01 21:33 | NUR ---
PT C/O HEARTBURN,WAS OFFERED MYLANTA BUT PT STATED "IT DOES NOT HELP".MD NOTIFIED.ONE TIME ORDER FOR PEPCID NOTED AND CARRIED OUT.WILL MONITOR.
[2016-12-01] MEDS: diphenhydrAMINE 50 MG CAPSULE PO PRN (21:39)
--- NOTE | 2016-12-01 21:40 | NUR ---
PRN MED-- PRN BENADRYL GIVEN ORDERED FOR C/O INSOMNIA PER PT REQUEST.WILL MONITOR.
--- NOTE | 2016-12-01 22:40 | NUR ---
PRN F/U-- PT SEEN RESTING IN BED WITH EYES CLOSED.NO S/S OF DISTRESS NOTED,WILL BE MONITORED FOR SAFETY.
[2016-12-02] VITALS (7 sets, daily range): BP systolic 100–141; BP diastolic 57–80
--- NOTE | 2016-12-02 06:46 | NUR ---
END [facility] SHIFT-- Pt is a 41 y/o male ETOH/OPIATE dependency;NKA, full code status,on regular diet.PMH of anxiety. Pt is A/O X 4. Patient denies N/V, and diarrhea. No GI symptoms.Skin is intact. Patient denies SI/HI. VS WNL. Breathing is unlabored and even. All needs met. Safety measures in the place by hospital policy: Call light within reach.Pt c/o MD milton was notified;one time order of Pepcid was given per order/PRN Benadryl given for insomnia.Pt slept 6 hrs;fluid intake was 1355 mls;voided x 1. Bed in the lowest position and locked, padded rails up x2. Patient is in stable condition,will be endorsed to day shift.
[2016-12-02] MEDS: PANTOPRAZOLE SODIUM 40 MG TABLET.DR PO SCH (07:00)
--- NOTE | 2016-12-02 07:36 | NUR ---
START OF SHIFT Received pt this am AOx4. Pt presents with anxiety. He states he is trying to do push ups to help feel "normal again." He reports headache, diarrhea, and really anxious. He was given PRN Imodium, Pepcid, and Benadryl with effectiveness per night nurse. He slept 6 hours. Last CIWA 2 per night nurse. Encouraged group attendance. Will provide safe and supportive environment. Will continue to monitor
[2016-12-02] MEDS: CLONIDINE HCL 0.1 MG TABLET PO SCH ×3 (08:22→21:10)
[2016-12-02] MEDS: GABAPENTIN 300 MG CAPSULE PO SCH ×3 (08:22→21:11)
[2016-12-02] MEDS: FOLIC ACID 1 MG TABLET PO SCH (08:23)
[2016-12-02] MEDS: MULTIVITAMINS,THERAPEUTIC TABLET PO SCH (08:23)
[2016-12-02] MEDS: THIAMINE HCL 100 MG TABLET PO SCH (08:23)
--- NOTE | 2016-12-02 08:25 | NUR ---
PRN MEDS PRN Imodium given for diarrhea. Will reassess
[2016-12-02] MEDS ORDERED: LORAZEPAM 1 MG TABLET PO SCH (09:00)
--- NOTE | 2016-12-02 09:30 | NUR ---
PRN REASSESSMENT Pt states Imodium was effective and he has not had diarrhea since the medication was given.
--- NOTE | 2016-12-02 13:10 | NUR ---
YONI REASSESSMENT Pt states his h/a is now a 10 and his nausea has ceased. Will continue to monitor. Addendum: 12/02/16 at 1707 by CHIKA RIBERA RN THIS NOTE WAS AT 1510 NOT 1310
[2016-12-02] MEDS: IBUPROFEN 400 MG TABLET PO PRN ×2 (14:24→21:11)
[2016-12-02] MEDS: ONDANSETRON ODT 4 MG TAB.RAPDIS SL PRN (14:24)
--- NOTE | 2016-12-02 14:24 | NUR ---
PRN ZOFRAN 4MG , MOTRIN 400MG Client reports nausea, no episodes of emesis, Zofran 4mg SL administered. He is with SANTANA 03/14 Motrin 8/10 PO administered. P 94, BP 114/66. Advice to increase fluid as tolerated. Call light within reach.
[2016-12-02] MEDS: HYDROXYZINE PAMOATE 25 MG CAPSULE PO PRN (17:06)
--- NOTE | 2016-12-02 17:08 | NUR ---
PRN MEDS PRN Vistaril given for c/o anxiety. Pt appears restless and mildly anxious. Will reassess ,
[2016-12-02 17:50] LABS: *AMPHETAMINE, URINE NEGATIVE (NEGATIVE); *BARBITURATE, URINE NEGATIVE (NEGATIVE); *CANNABINOID, URINE NEGATIVE (NEGATIVE); *COCCAINE, URINE NEGATIVE (NEGATIVE); *OPIATE, URINE NEGATIVE (NEGATIVE); *PHENCYCLIDINE SCREEN,URINE NEGATIVE (NEGATIVE)
--- NOTE | 2016-12-02 18:04 | NUR ---
PRN REASSESSMENT Pt states he feels less anxious. Currently resting in bed with bed locked and in lowest position and call [place] within reach. Will monitor.
[2016-12-02] MEDS ORDERED: Gabapentin PO ×2 (18:09)
[2016-12-02] MEDS ORDERED: PANT40TA2 PO (18:09)
[2016-12-02] MEDS ORDERED: HYDR-3895 PO (18:09)
[2016-12-02] MEDS ORDERED: CLON0.1T14 PO (18:09)
[2016-12-02] MEDS ORDERED: DIPH50CA37 PO (18:09)
[2016-12-02] MEDS ORDERED: Nicotine TD (18:09)
[2016-12-02] MEDS ORDERED: Ibuprofen PO (18:09)
--- NOTE | 2016-12-02 18:54 | NUR ---
END OF SHIFT Pt scheduled for discharge tomorrow to [facility]. Pt completed 5 day Ativan taper. Pt given PRN Imodium, Zofran, Motrin, and Vistaril with effectiveness. Last CIWA 5. Pt c/o constant headache and mild anxiety. Pt presents with brighter mood this afternoon. Pt attended groups and activities and socialized with peers. Will pass shift report to oncoming nurse.
--- NOTE | 2016-12-02 20:10 | NUR ---
START OF SHIFT Received report from day shift nurse. Pt attended a group meeting and returned to his room after. He is a 41 yo male admitted to [facility] on 11/26 for ETOH dependence. He is A&O x4 and ambulatory. NKA, full code, regular diet. He has a past history of anxiety. On admission he reported using ETOH 1-2 pints of vodka, marijuana 1 bowl per day, norco TID5x/week, and soma unknown amoung BID 5x/week. He completed an extended Ativan taper and is scheduled for discharge tomorrow. He reports headache and anxiety. Fall and seizure precautions in place. Bed is down with call light in reach.
--- NOTE | 2016-12-02 21:12 | NUR ---
PRN Motrin administration Pt c/o headache 03/14. PRN Motrin administered.
--- NOTE | 2016-12-02 22:12 | NUR ---
PRN Motrin reassessment PRN Motrin effective. Pt reports headache is almost completely resolved. No further medications requested.
[2016-12-02] MEDS: diphenhydrAMINE 50 MG CAPSULE PO PRN (23:00)
--- NOTE | 2016-12-02 23:01 | NUR ---
PRN Benadryl administration Pt c/o inability to sleep. PRN Benadryl administered.
[2016-12-02] MEDS: NICOTINE 14 MG/24HR PATCH TD SCH (23:04)
[2016-12-03] VITALS: BP 100/63
--- NOTE | 2016-12-03 00:01 | NUR ---
PRN Benadryl reassessment PRN Benadryl effective. Pt is lying in bed resting with eyes closed. Respirations even and unlabored. Bed is down with call light in reach.
--- NOTE | 2016-12-03 04:00 | NUR ---
Vitals refused and CIWA deferred Pt refused to be woken for 0400 vitals. Respirations even and unlabored. Bed is down with call light in reach. CIWA ordered [id number]
[2016-12-03] MEDS: PANTOPRAZOLE SODIUM 40 MG TABLET.DR PO SCH (06:47)
--- NOTE | 2016-12-03 07:21 | NUR ---
END OF SHIFT Report provided to day shift nurse. Pt is lying in bed resting. He is a 41 yo male admitted to [facility] on 11/26 for ETOH dependence. He is A&O x4 and ambulatory. He has NKA, is full code status, and on a regular diet. He has a past history of anxiety. On admission he reported using ETOH 1-2 pints of vodka, marijuana 1 bowl per day, norco TID5x/week, and soma unknown amount BID 5x/week. Pt completed an extended Ativan taper and is discharging today. PRN Motrin and Benadryl administered. Last CIWA was 3. He drank 1980mL and slept for 3 hours. Fall precautions in place. Bed is down with call light in reach.
[2016-12-03 08:00] VITALS: BP 140/67
--- NOTE | 2016-12-03 08:05 | NUR ---
START OF SHIFT: RECEIVED PT A/O X 4. HE STATES HE HAD A HORRIBLE RESTLESS NIGHT SLEEP. EDUCATED HIM ON NICOTINE PATCH AND SUGGESTED HE TAKE IT OFF BEFORE BEDTIME. DISCHARGE PLANNING IN PROGRESS FOR THIS AM.TAPER COMPLETED. HE STATES HE FEELS MILDLY ANXIOUS ABOUT GOING TO TREATMENT BUT STATES HE FEELS ENTHUSIASTIC ABOUT STAYING SOBER. MEDICATED ORDERED. WILL CONTINUE WITH DISCHARGE PROCESS.
[2016-12-03] MEDS: FOLIC ACID 1 MG TABLET PO SCH (08:35)
[2016-12-03] MEDS: MULTIVITAMINS,THERAPEUTIC TABLET PO SCH (08:35)
[2016-12-03] MEDS: GABAPENTIN 300 MG CAPSULE PO SCH (08:35)
[2016-12-03] MEDS: THIAMINE HCL 100 MG TABLET PO SCH (08:35)
[2016-12-03] MEDS: NICOTINE 14 MG/24HR PATCH TD SCH (08:35)
[2016-12-03 08:36] VITALS: BP 140/67
[2016-12-03] MEDS: CLONIDINE HCL 0.1 MG TABLET PO SCH (08:36)
--- NOTE | 2016-12-03 09:55 | NUR ---
DISCHARGE: PT IS A/O X 4. HE DENIES S/I AND H/I. BELONGINGS RETURNED. EDUCATED PT ON DISCHARGE INSTRUCTIONS AND MEDICATIONS. HE EXPRESSED VERBAL UNDERSTANDING OF EDUCATION. VS WNL. COMMAND AND CONTROL SPECIALIST ESCORTED PT TO [facility] WHERE HE WAS TRANSPORTED BY [facility] TO [facility] AT 0945.
[2016-12-04 05:55] LABS: *CANNABINOID (THC) Positive (.); *CODEINE Negative (Cutoff=300); *HYDROMORPHONE Negative (Cutoff=300); *OPIATES Positive ng/mL (Cutoff=300)
== END 2016-12-03 09:45 | disposition other institution (70) | DRG 895 ==
LOC: SRC 13:32
PROVIDERS: ADMIT Internal Medicine; ATTEND Internal Medicine
PROC: HZ2ZZZZ Detoxification Services for Substance Abuse Treatment (ICD-10-PCS; principal; 2016-11-26)
PROC: HZ41ZZZ Group Counseling for Substance Abuse Treatment, Behavioral (ICD-10-PCS; 2016-11-28)
DX: F10.230 Alcohol dependence with withdrawal, uncomplicated (principal); E87.3 Alkalosis; Y90.9 Presence of alcohol in blood, level not specified; Z83.3 Family history of diabetes mellitus; I15.9 Secondary hypertension, unspecified; Z81.1 Family history of alcohol abuse and dependence; Z80.9 Family history of malignant neoplasm, unspecified; F17.210 Nicotine dependence, cigarettes, uncomplicated; F12.10 Cannabis abuse, uncomplicated; F41.9 Anxiety disorder, unspecified; F39 Unspecified mood [affective] disorder; E86.0 Dehydration; R19.7 Diarrhea, unspecified; F11.90 Opioid use, unspecified, uncomplicated
CPT/HCPCS: 36415; 70030-TC; 80307; 80349; 80361; 83690; 83735; 84100; 85025; 86580; 86592; 86705; 86803; 87340; 87806; A4663; G6040-TC; J2405; J3411; Q0162; Q0163